=== PATIENT | female | born 1945 | race Caucasian/White ===

== ENCOUNTER 2023-02-21 17:14 | Emergency (ER) | payer OTHER, MEDICAID ==
[~2023-02-21] VITALS: Ht 165.1 cm; Wt 72.6 kg
[2023-02-21 17:16] VITALS: BP_SYST 128
--- NOTE | 2023-02-21 17:20 | NUR ---
Placed in room 08 . Placed on athletic monitor, blood pressure machine and pulse oximeter. To gown for exam. Side rails up. Report given to DEEPTI LUTZ AND SANDEE GEORGE.
--- NOTE | 2023-02-21 17:49 | NUR ---
PHLEBOTOMY IN ROOM DRAWING SAMPLES
--- NOTE | 2023-02-21 17:50 | NUR ---
RADIOLOGY AT BEDSIDE - PORTABLE XRAY
[2023-02-21 18:20] LABS: BASOPHILS % (AUTO) 0.5 % (0.0-2.0); EOSINOPHILS # (AUTO) 0.2 K/uL (0.0-0.4); EOSINOPHILS % (AUTO) 2.2 % (0.0-4.0); HEMATOCRIT 34.9 % (36-48); HEMOGLOBIN 11.4 g/dL (12.0-16.0); LYMPHOCYTES # (AUTO) 1.2 K/uL (1.0-5.5); LYMPHOCYTES % (AUTO) 16.2 % (20.5-51.5); MEAN CORPUSCULAR HEMOGLOBIN 30 pg (27-31); MEAN CORPUSCULAR HGB CONC 33 % (32-36); MEAN CORPUSCULAR VOLUME 92 fL (79.0-98.0); MONOCYTES # (AUTO) 0.5 K/uL (0.0-1.0); MONOCYTES % (AUTO) 7.2 % (1.7-9.3); NEUTROPHILS # (AUTO) 5.6 K/uL (1.8-7.7); NEUTROPHILS % (AUTO) 73.9 % (40.0-70.0); PLATELET COUNT (AUTO) 277 K/uL (130-430); RED BLOOD CELL COUNT(AUTO) 3.78 MIL/uL (4.2-6.2); RED CELL DISTRIBUTION WIDTH 14.6 % (9.0-15.0); WHITE BLOOD COUNT (AUTO) 7.6 K/uL (4.8-10.8)
[2023-02-21] MEDS ORDERED: NIRM1TAB PO (18:43)
[2023-02-21] MEDS ORDERED: PRED20TA PO (18:43)
[2023-02-21 19:18] LABS: ANION GAP 11 (5-15); CHLORIDE 108 mmol/L (98-107); GLUCOSE 92 mg/dL (70-99); UREA NITROGEN, BLOOD 23 mg/dL (8-21)
--- NOTE | 2023-02-21 19:20 | NUR ---
RECEIVED VERBAL REPORT FROM OUTGOING NURSE DEEPTI LUTZ. RECEIVED PT AWAKE AND ALERT, NO S/S OF DISTRESS NOTED. SAFETY PRECAUTIONS IN PLACE.
[2023-02-21 19:23] LABS: ALANINE AMINOTRANSFERASE 15 U/L (12-78); ALBUMIN 2.9 g/dL (3.4-4.8); ASPARTATE AMINOTRANSFERASE 13 U/L (10-37); TOTAL BILIRUBIN 0.5 mg/dL (0.0-1.0)
--- NOTE | 2023-02-21 20:25 | NUR ---
PT AWAKE AND ALERT, NO S/S OF DISCOMFORT NOTED. CHANGED PT'S WET BRIEF, PERICARE PROVIDED, NO REDNESS NOTED. SAFETY PRECAUTIONS IN PLACE.
--- NOTE | 2023-02-21 20:33 | NUR ---
Patient given written and verbal discharge instructions and verbalizes understanding. ER DR MENDEZ discussed with patient the results and treatment provided. Patient in stable condition. ID arm band removed. IV catheter removed intact and dressing applied, no active bleeding. Rx of PREDNISONE AND PAXLOVID given. Patient educated on pain management and to follow up with PMD. Pain Scale 0/10. Opportunity for questions provided and answered. Medication side effect fact sheet provided.
[2023-02-21 20:41] VITALS: BP_SYST 130
== END 2023-02-21 20:33 | disposition home or self-care (01) ==
LOC: SED 17:14
DX: U07.1 COVID-19 (principal); R06.02 Shortness of breath; R05.9 Cough, unspecified; Z91.018 Allergy to other foods; Z79.899 Other long term (current) drug therapy
CPT/HCPCS: 36415; 71045; 80053; 83880; 84484; 85025; 93005; 99285

== ENCOUNTER 2024-03-29 18:07 | Emergency (ER) | payer MEDICAID, OTHER ==
[~2024-03-29] VITALS: Ht 165.1 cm; Wt 81.6 kg
[2024-03-29 18:07] VITALS: BP_SYST 147; PULSE 69; RESP 18; TEMP 97.8; O2SAT 94
[~2024-03-29 18:07] MED LIST: NIRM1TAB PO; PRED20TA PO
[2024-03-29 18:49] LABS: BASOPHILS # (AUTO) 0.1 K/uL (0.0-0.2); BASOPHILS % (AUTO) 1.1 % (0.0-2.0); EOSINOPHILS # (AUTO) 0.5 K/uL (0.0-0.4); EOSINOPHILS % (AUTO) 5.8 % (0.0-4.0); HEMOGLOBIN 10.3 g/dL (12.0-16.0); LYMPHOCYTES # (AUTO) 1.5 K/uL (1.0-5.5); LYMPHOCYTES % (AUTO) 19.1 % (20.5-51.5); MEAN CORPUSCULAR HEMOGLOBIN 31 pg (27-31); MEAN CORPUSCULAR HGB CONC 33 % (32-36); MEAN CORPUSCULAR VOLUME 92 fL (79.0-98.0); MONOCYTES # (AUTO) 0.7 K/uL (0.0-1.0); NEUTROPHILS # (AUTO) 5.1 K/uL (1.8-7.7); PLATELET COUNT (AUTO) 360 K/uL (130-430); RED BLOOD CELL COUNT(AUTO) 3.38 MIL/uL (4.2-6.2); WHITE BLOOD COUNT (AUTO) 7.9 K/uL (4.8-10.8)
[2024-03-29 19:00] LABS: ANION GAP 10 (5-15); CARBON DIOXIDE 21 mmol/L (23-29); CHLORIDE 110 mmol/L (98-107); CREATININE 1.83 mg/dL (0.55-1.30); GLUCOSE 118 mg/dL (74-106); SODIUM SERUM 141 mmol/L (136-145); UREA NITROGEN, BLOOD 27 mg/dL (8-21)
[2024-03-29] MEDS: HYDROcodone/ACETAMIN 5-325 MG TAB (NORCO/ VICODIN) PO ONE (20:45)
[2024-03-29 22:42] VITALS: BP_SYST 148; PULSE 70; RESP 16; TEMP 98.1; O2SAT 93
== END 2024-03-29 22:40 | disposition home or self-care (01) ==
LOC: SED 18:07
DX: R07.0 Pain in throat (principal); M54.2 Cervicalgia; Z91.018 Allergy to other foods; Z79.899 Other long term (current) drug therapy; Z79.2 Long term (current) use of antibiotics
CPT/HCPCS: 36415; 70490; 80048; 85025; 99284; Q9967